=== PATIENT | male | born 1980 | race Caucasian/White ===

== ENCOUNTER → 2017-07-05 | Outpatient (CLI) | payer OTHER | LOC: M PLARAD 10:33 | DX: M51.06 Intervertebral disc disorders with myelopathy, lumbar region (principal); M46.96 Unspecified inflammatory spondylopathy, lumbar region | CPT/HCPCS: 72148 ==

== ENCOUNTER 2019-07-22 01:02 | Emergency (ER) | payer OTHER ==
[~2019-07-22] VITALS: Ht 170.2 cm; Wt 89.0 kg
[2019-07-22] MEDS ORDERED: NS 1,000 ML IV ONE (01:15)
[2019-07-22 01:42] LABS: BASO % 0.3 % (0.0-1.0); EOS # 0.1 10^3/uL (0.0-0.5); EOS % 0.5 % (0.0-3.0); HEMATOCRIT 41.9 % (42.0-52.0); LYMPH # 1.2 10^3/uL (1.5-5.0); LYMPH % 9.5 % (24.0-44.0); MEAN CORPUSCULAR HEMOGLOBIN 29.1 pg (27.0-33.0); MEAN CORPUSCULAR HGB CONC 33.4 g/dl (32.0-36.5); MEAN CORPUSCULAR VOLUME 87.1 fl (80.0-96.0); MONO # 0.5 10^3/uL (0.0-0.8); MONO % 4.2 % (0.0-5.0); NEUTROPHILS # 10.4 10^3/uL (1.5-8.5); NEUTROPHILS % 85.3 % (36.0-66.0); PLATELET COUNT, AUTOMATED 218 10^3/uL (150-450); RED BLOOD COUNT 4.81 10^6/uL (4.30-6.10); WHITE BLOOD COUNT 12.2 10^3/uL (4.0-10.0)
[2019-07-22 02:15] LABS: ACETAMINOPHEN LEVEL < 2.0 UG/ML (10.0-30.0); ALT/SGPT 50 U/L (12-78); BILIRUBIN,DIRECT 0.1 MG/DL (0.0-0.2); BILIRUBIN,TOTAL 0.3 MG/DL (0.2-1.0); BLOOD UREA NITROGEN 5 MG/DL (7-18); CARBON DIOXIDE LEVEL 25 MEQ/L (21-32); CHLORIDE LEVEL 115 MEQ/L (98-107); CPK CREATINE PHOSPHOKINASE 162 U/L (39-308); CREATININE FOR GFR 0.99 MG/DL (0.70-1.30); ETHYL ALCOHOL (ETHANOL) < 0.003 % (0.000-0.010); GLOMERULAR FILTRATION RATE > 60.0 (>60); GLUCOSE, FASTING 109 MG/DL (70-100); SALICYLATE LEVEL < 1.7 MG/DL (5.0-30.0); SODIUM LEVEL 145 MEQ/L (136-145); THYROID STIMULATING HORMONE 0.498 uIU/ML (0.358-3.740); TOTAL PROTEIN 7.3 GM/DL (6.4-8.2)
[2019-07-22 03:19] LABS: AMPHETAMINES LEVEL URINE NEGATIVE (NEGATIVE); BARBITURATES URINE NEGATIVE (NEGATIVE); BENZODIAZEPINES URINE NEGATIVE (NEGATIVE); CANNABINOIDS URINE NEGATIVE (NEGATIVE); COCAINE METABOLITE URINE NEGATIVE (NEGATIVE); METHADONE URINE NEGATIVE (NEGATIVE); OPIATES URINE NEGATIVE (NEGATIVE); PHENCYCLIDINE URINE NEGATIVE (NEGATIVE)
--- NOTE | 2019-07-22 05:13 | REPVR ---
PROCEDURE INFORMATION: Exam: CT Head Without Contrast Exam date and time: 07/22/2019 4:52 AM Age: 38 years old Clinical indication: Altered mental status/memory loss; Confusion or disorientation; Additional info: AMS TECHNIQUE: Imaging protocol: Computed tomography of the head without contrast. Radiation optimization: All CT scans at this facility use at least one of these dose optimization techniques: automated exposure control; mA and/or kV adjustment per patient size (includes targeted exams where dose is matched to clinical indication); or iterative reconstruction. COMPARISON: No relevant prior studies available. FINDINGS: Brain: Normal. No hemorrhage. Unremarkable white matter. No mass effect. Ventricles: Normal. No ventriculomegaly. Bones/joints: Unremarkable. No acute fracture. Sinuses: Visualized sinuses are unremarkable. No fluid levels. Mastoid air cells: Visualized mastoid air cells are well aerated. Soft tissues: Unremarkable. IMPRESSION: No acute intracranial abnormality. Electronically signed by: Kam Finch On 07/22/2019 05:13:07 AM
[2019-07-22 06:28] LABS: LITHIUM LEVEL 1.26 MEQ/L (0.60-1.20)
[2019-07-22] MEDS ORDERED: PRAZ2CAP PO (07:58)
[2019-07-22] MEDS ORDERED: OXYC10TA12 PO (07:58)
[2019-07-22] MEDS ORDERED: GABA-843 PO (07:58)
[2019-07-22] MEDS ORDERED: LITH300C PO (07:58)
[2019-07-22] MEDS ORDERED: NARC1SPR NARES (07:58)
[2019-07-22] MEDS ORDERED: LIDO1CRE2 TOP (07:58)
[2019-07-22] MEDS ORDERED: THER4000 PO (07:58)
[2019-07-22] MEDS ORDERED: ZOLP5TAB PO (07:58)
[2019-07-22] MEDS ORDERED: DURA25DI3 TOP (07:58)
[2019-07-22] MEDS ORDERED: CLOB0.0526 TOP (07:58)
[2019-07-22] MEDS ORDERED: PROP60TA14 PO (07:58)
[2019-07-22] MEDS ORDERED: PRAZOSIN 1 MG CAP PO ONE (09:15)
[2019-07-22] MEDS ORDERED: PROPRANOLOL 10 MG TAB PO ONE (09:15)
[2019-07-22 09:19] VITALS: BP 151/90
[2019-07-22] MEDS ORDERED: ALPRAZolam 0.5 MG TAB PO ONE (09:45)
[2019-07-22] MEDS ORDERED: REME15TA2 PO (10:52)
--- NOTE | 2019-07-22 10:52 | MHCRPDOC ---
[facility] Consultation Consultation DATE OF CONSULTATION: 07/22/19 CONSULTATION REQUESTED BY: ED REASON FOR CONSULTATION: altered thoughts RELEVANT HISTORY: Pt was brought to ED by his due to having altered though ts, responding to internal stimuli after having taken ambien the previous not to help him sleep and accidently forgetting to take his old fentanyl patch off prior to putting a new one on. Pt seen this morning and states he feels much better after taking off one of his fentanyl patches off, that his thoughts are clear, and he denies SI/HI, hallucinations, delusions. States he has not slept in 4 nights as ambien hasn't been beneficial to help him sleep. Discussed giving him an rx for remeron 15mg qhs for insomnia, risks/benefits discussed, and he's agreeable. Feels safe to go home to his today with follow-up at the [facility]. 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 FAMILY HISTORY: denies PERSONAL AND SOCIAL HISTORY: Resides in: [place] with his who is supportive Marital Status: M Children: denies Employment: [employer] with benefits due to injury during deployment SUBSTANCE ABUSE HISTORY: denies LEGAL HISTORY: denies MENTAL STATUS EXAMINATION: Patient is a 38-year old male, who is cooperative and appropriate Speech is reg rate/rhythm/volume Language skills are appropriate Thought processes including: linear/logical, future oriented Thought content: denies SI/HI, AVH Abstract reasoning, and computation: intact Description of associations: appropriate Description of abnormal or psychotic thoughts: denies hallucinations, delusions, paranoia Judgment: good Insight: good Orientation to x3 Recent and remote memory: intact Attention span and concentration: good Language: appropriate Fund of knowledge: average Mood: "better" Affect: euthymic, full range DIAGNOSIS: 1. Psychosis unspecified PLAN: 1. d/c ambien, Rx remeron 15mg qhs for insomnia 2.D/c hoem with follow-up at the [facility] Vital Signs Vital Signs Date Time Temp Pulse Resp B/P (MAP) Pulse Ox O2 Delivery O2 Flow Rate FiO2 07/22/19 09:58 91 151/90 (110) 07/22/19 05:32 95 07/22/19 05:31 98.3 18 Room Air Laboratory Data 24H Labs Laboratory Tests 2 07/22/19 01:33: Immature Granulocyte % (Auto) 0.2, Neutrophils (%) (Auto) 85.3H, Lymphocytes (%) (Auto) 9.5L, Monocytes (%) (Auto) 4.2, Eosinophils (%) (Auto) 0.5, Basophils (%) (Auto) 0.3, Neutrophils # (Auto) 10.4H, Lymphocytes # (Auto) 1.2L, Monocytes # (Auto) 0.5, Eosinophils # (Auto) 0.1, Basophils # (Auto) 0.0, Nucleated Red Blood Cells % (auto) 0.0, Anion Gap 5L, Glomerular Filtration Rate > 60.0, Calcium Level 10.0, Total Bilirubin 0.3, Direct Bilirubin 0.1, Aspartate Amino Transf (AST/SGOT) 21, Alanine Aminotransferase (ALT/SGPT) 50, Alkaline Phosphatase 88, Total Creatine Kinase 162, Total Protein 7.3, Albumin 4.0, Albumin/Globulin Ratio 1.21, Thyroid Stimulating Hormone (TSH) 0.498, Salicylates Level < 1.7L, Urine Opiates Screen NEGATIVE, Urine Methadone Screen NEGATIVE, Acetaminophen Level < 2.0L, Urine Barbiturates Screen NEGATIVE, Urine Phencyclidine Screen NEGATIVE, Urine Amphetamines Screen NEGATIVE, Urine Benzodiazepines Screen NEGATIVE, Lane Level 1.26H, Urine Cocaine Metabolite Screen NEGATIVE, Urine Cannabinoids Screen NEGATIVE, Ethyl Alcohol Level < 0.003 07/22/19 06:49: Lane Level 0.84 Home Medications Scheduled Cholecalciferol (Vitamin D3) (Thera-D) 4,000 Unit Tablet, 4,000 UNIT PO DAILY, (Reported) Clobetasol Propionate (Clobetasol Propionate) 0.05% 50GM Foam, 1 APLCT TOP BID, (Reported) Fentanyl (Duragesic) 25 Mcg Patch.td72, 1 PATCH TOP Q3D for pain, (Reported) Gabapentin (Gabapentin) 300 Mg Capsule, 1 CAP PO QPM, (Reported) Lidocaine (Lidocaine) 5 Gm Cream..g., 1 APLCT TOP DAILY, (Reported) Lane Carbonate (Lane Carbonate) 300 Mg Capsule, 900 MG PO QPM, (Reported) Naloxone HCl (Narcan) 4 Mg [place], 1 SPRAY NARES ONCE, (Reported) Prazosin Hcl (Prazosin HCl) 2 Mg Capsule, 2 CAP PO BID, (Reported) Propranolol Hcl (Propranolol HCl) 60 Mg Tablet, 10 MG PO TID, (Reported) Scheduled PRN Oxycodone HCl (Oxycodone HCl) 10 Mg Tablet, 1 TAB PO QIDP PRN for pain, (Reported) Zolpidem Tartrate (Zolpidem Tartrate) 5 Mg Tablet, 12.5 MG PO QPMP PRN for sleep, (Reported) Allergies Uncoded Allergies: unknown antibiotic (Allergy, Severe, 07/22/19) PHU CORLEY DO Jul 22, 2019 10:52
[2019-07-22 11:08] VITALS: BP 144/87
--- NOTE | 2019-07-22 22:26 | ECGEPIP ---
[facility] - ED Test Date: 2019-07-22 Pat Name: JAY PITT Department: Room: - Gender: Male Event Specialist: : 1980 Requested By: JOHANA Brumfield Order Number: [id number] Reading MD: Roddy Garcia Measurements Intervals [place] Rate: 103 P: 44 VA: 200 QRS: 14 QRSD: 81 T: 11 QT: 348 QTc: 456 Interpretive Statements SINUS TACHYCARDIA WITH FREQUENT SUPRAVENTRICULAR PREMATURE COMPLEXES NONSPECIFIC T-WAVE ABNORMALITY NO PRIORS FOR COMPARISON Electronically Signed on 07-22-2019 22:26:34 EDT by Roddy Garcia
== END 2019-07-22 11:10 | disposition home or self-care (01) ==
LOC: M ED 01:02
DX: F19.150 Other psychoactive substance abuse with psychoactive substance-induced psychotic disorder with delusions (principal); R00.0 Tachycardia, unspecified; Z79.899 Other long term (current) drug therapy; Z88.1 Allergy status to other antibiotic agents
CPT/HCPCS: 70450; 80048; 80076; 80178; 80307; 82550; 84443; 85025; 93005; 93041; 94760; 96360; 99285; G0480

== ENCOUNTER 2021-05-23 14:01 | Emergency (ER) | payer OTHER ==
[~2021-05-23] VITALS: Ht 170.2 cm; Wt 88.8 kg
[~2021-05-23 14:01] MED LIST: CLOB0.0526 TOP; DURA25DI3 TOP; GABA-282 PO; LIDO1CRE2 TOP; LITH300C PO; NARC1SPR NARES; OXYC10TA12 PO; PRAZ2CAP PO; PROP60TA14 PO; REME15TA2 PO; THER4000 PO; ZOLP5TAB PO
[2021-05-23] MEDS ORDERED: PANTOPRAZOLE 40MG VIAL (C9113 PER 1) IV ONE (17:15)
[2021-05-23] MEDS ORDERED: GI COCKTAIL 50ML BTL(HYOSCYAMINE/MAALOX/LIDOCAINE VISCOUS)(1:3:1) PO ONE (17:15)
[2021-05-23] MEDS ORDERED: SUCRALFATE 1 GM TAB PO ONE (17:15)
[2021-05-23 17:21] LABS: BASO % 0.2 % (0.0-1.0); EOS % 0.1 % (0.0-3.0); HEMOGLOBIN 14.2 g/dl (13.5-17.5); LYMPH # 1.2 10^3/uL (1.5-5.0); LYMPH % 6.7 % (24.0-44.0); MEAN CORPUSCULAR HEMOGLOBIN 29.1 pg (27.0-33.0); MEAN CORPUSCULAR HGB CONC 33.8 g/dl (32.0-36.5); MEAN CORPUSCULAR VOLUME 86.1 fl (80.0-96.0); MONO # 0.5 10^3/uL (0.0-0.8); MONO % 2.7 % (2.0-8.0); NEUTROPHILS # 15.3 10^3/uL (1.5-8.5); NEUTROPHILS % 89.5 % (36.0-66.0); PLATELET COUNT, AUTOMATED 229 10^3/uL (150-450); RED BLOOD COUNT 4.88 10^6/uL (4.30-6.10); WHITE BLOOD COUNT 17.1 10^3/uL (4.0-10.0)
[2021-05-23 17:26] LABS: ALBUMIN 4.3 GM/DL (3.2-5.2); ALT/SGPT 28 U/L (12-78); BILIRUBIN,DIRECT 0.1 MG/DL (0.0-0.2); BILIRUBIN,TOTAL 0.3 MG/DL (0.2-1.0); BLOOD UREA NITROGEN 10 MG/DL (7-18); CALCIUM LEVEL 9.8 MG/DL (8.5-10.1); CARBON DIOXIDE LEVEL 24 MEQ/L (21-32); CHLORIDE LEVEL 110 MEQ/L (98-107); CREATININE FOR GFR 1.23 MG/DL (0.70-1.30); GLOMERULAR FILTRATION RATE > 60.0 (>60); GLUCOSE, FASTING 140 MG/DL (70-100); LIPASE 74 U/L (73-393); POTASSIUM SERUM 3.8 MEQ/L (3.5-5.1); SODIUM LEVEL 140 MEQ/L (136-145); TOTAL PROTEIN 7.6 GM/DL (6.4-8.2)
[2021-05-23] MEDS ORDERED: PROT1TAB2 PO (18:48)
[2021-05-23] MEDS ORDERED: CARA1TAB6 PO (18:48)
[2021-05-23 18:57] VITALS: BP 155/80
== END 2021-05-23 19:05 | disposition home or self-care (01) ==
LOC: M ED 14:01
DX: R10.11 Right upper quadrant pain (principal); D72.829 Elevated white blood cell count, unspecified; K80.20 Calculus of gallbladder without cholecystitis without obstruction; I47.1 Supraventricular tachycardia; Z88.5 Allergy status to narcotic agent; Z88.8 Allergy status to other drugs, medicaments and biological substances; Z79.899 Other long term (current) drug therapy

== ENCOUNTER 2021-05-25 21:29 | Inpatient (IN) | payer OTHER ==
[~2021-05-25] VITALS: Ht 170.2 cm; Wt 89.5 kg
[~2021-05-25 21:29] MED LIST changes: +CARA1TAB6 PO; +PROT1TAB2 PO
[2021-05-25] MEDS ORDERED: MORPHINE 2 MG/ML 1ML VIAL (J2270) IV PRN (23:00)
[2021-05-25] MEDS ORDERED: ACETAMINOPHEN TAB 650MG DOSE (2X325MG) PO PRN (23:00)
[2021-05-25] MEDS ORDERED: ONDANSETRON 4MG/2ML VIAL IV PRN (23:00)
[2021-05-25 23:39] VITALS: BP 140/78
[2021-05-26] VITALS (8 sets, daily range): BP systolic 113–145; BP diastolic 61–82
[2021-05-26] MEDS: KCL 20MEQ IN D5/0.45NS 1000ML 1,000 ML IV SCH ×4 (00:29→23:03)
[2021-05-26] MEDS: PIPERACILLIN/TAZOBACTAM SOD 3.375 GM in D5W MINI-BAG PLUS 50 ML IV SCH ×4 (01:23→19:46)
[2021-05-26] MEDS ORDERED: PROP10TA56 PO (01:35)
[2021-05-26] MEDS ORDERED: FAMO20TA PO (01:35)
[2021-05-26] MEDS ORDERED: GABA600T4 PO (01:35)
[2021-05-26] MEDS ORDERED: MIRT-60 PO (01:35)
[2021-05-26] MEDS ORDERED: LITH45TASA PO (01:35)
[2021-05-26] MEDS ORDERED: PRAZ2CAP PO (01:35)
[2021-05-26] MEDS ORDERED: VITA500054 PO (01:35)
[2021-05-26] MEDS ORDERED: OCUV1CAP4 PO (01:36)
[2021-05-26] MEDS ORDERED: REFR0.5D8 OU (01:36)
[2021-05-26] MEDS ORDERED: FISH1000 PO (01:36)
[2021-05-26] MEDS ORDERED: HOME MED LIST COMPLETE! XX SCH (01:40)
[2021-05-26] MEDS: GABAPENTIN 300 MG CAP PO SCH ×2 (02:05→19:49)
[2021-05-26] MEDS: MIRTAZAPINE 15 MG TAB PO SCH ×2 (02:05→19:48)
[2021-05-26] MEDS: PRAZOSIN 1 MG CAP PO SCH ×3 (02:06→20:05)
[2021-05-26] MEDS: PROPRANOLOL 10 MG TAB PO SCH ×3 (02:29→20:05)
[2021-05-26] MEDS: LITHIUM CARBONATE 450 MG **CR** TAB PO SCH ×2 (02:29→19:48)
[2021-05-26] MEDS: FAMOTIDINE 20 MG TAB PO SCH ×2 (08:23→19:49)
[2021-05-26] MEDS: KETOROLAC 30 MG/ML 1ML VIAL IV PRN (08:23)
[2021-05-26 11:15] LABS: BASO # 0.1 10^3/uL (0.0-0.2); BASO % 0.3 % (0.0-1.0); EOS # 0.2 10^3/uL (0.0-0.5); EOS % 0.9 % (0.0-3.0); HEMATOCRIT 39.9 % (42.0-52.0); HEMOGLOBIN 13.4 g/dl (13.5-17.5); LYMPH # 1.9 10^3/uL (1.5-5.0); LYMPH % 9.9 % (24.0-44.0); MEAN CORPUSCULAR HEMOGLOBIN 29.3 pg (27.0-33.0); MEAN CORPUSCULAR HGB CONC 33.6 g/dl (32.0-36.5); MEAN CORPUSCULAR VOLUME 87.1 fl (80.0-96.0); MONO # 1.3 10^3/uL (0.0-0.8); NEUTROPHILS # 15.1 10^3/uL (1.5-8.5); NEUTROPHILS % 81.2 % (36.0-66.0); PLATELET COUNT, AUTOMATED 212 10^3/uL (150-450); RED BLOOD COUNT 4.58 10^6/uL (4.30-6.10); WHITE BLOOD COUNT 18.6 10^3/uL (4.0-10.0)
[2021-05-26 13:06] LABS: ALBUMIN 2.9 GM/DL (3.2-5.2); ALT/SGPT 59 U/L (12-78); BILIRUBIN,TOTAL 0.8 MG/DL (0.2-1.0); BLOOD UREA NITROGEN 11 MG/DL (7-18); CARBON DIOXIDE LEVEL 22 MEQ/L (21-32); CHLORIDE LEVEL 111 MEQ/L (98-107); CREATININE FOR GFR 1.24 MG/DL (0.70-1.30); GLOMERULAR FILTRATION RATE > 60.0 (>60); GLUCOSE, FASTING 133 MG/DL (70-100); POTASSIUM SERUM 3.9 MEQ/L (3.5-5.1); SODIUM LEVEL 138 MEQ/L (136-145); TOTAL PROTEIN 6.8 GM/DL (6.4-8.2)
[2021-05-26] MEDS ORDERED: BUPIVACAINE HCL 0.25% 30ML VIAL As Ordered ONE (15:35)
[2021-05-26] MEDS ORDERED: propofoL 200 MG/20 ML VIAL As Ordered ONE (15:36)
[2021-05-26] MEDS ORDERED: ROCURONIUM BROMIDE 50 MG/5 ML VIAL As Ordered ONE ×2 (15:36→16:27)
[2021-05-26] MEDS ORDERED: ONDANSETRON 4MG/2ML VIAL As Ordered ONE (15:36)
[2021-05-26] MEDS ORDERED: LIDOCAINE 2% 100MG/5ML SDV (FOR ANES.) As Ordered ONE (15:36)
[2021-05-26] MEDS ORDERED: fentaNYL 100 MCG/2 ML INJECTION (J3010) As Ordered ONE ×2 (15:36→17:10)
[2021-05-26] MEDS ORDERED: dexameTHASONE 4 MG/ML 1ML VIAL (J1100 PER 1MG) As Ordered ONE (15:36)
[2021-05-26] MEDS ORDERED: MIDAZOLAM INJ 2MG/2ML VIAL (J2250 PER 1MG) As Ordered ONE (15:36)
[2021-05-26] MEDS ORDERED: ESMOLOL INJ 100MG/10ML VIAL As Ordered ONE (16:05)
[2021-05-26] MEDS ORDERED: SUGAMMADEX SODIUM 500 MG/5 ML VIAL (BRIDION) As Ordered ONE (16:24)
[2021-05-26] MEDS ORDERED: KETOROLAC 60MG 2ML VIAL As Ordered ONE (16:24)
[2021-05-26] MEDS ORDERED: PHENYLephrine 500MCG 5ML (100MCG/ML) SYRINGE As Ordered ONE (16:50)
[2021-05-26] MEDS ORDERED: ePHEDrine SULFATE 25 MG/5 ML(5MG/ML) SYRINGE As Ordered ONE (16:50)
[2021-05-26] MEDS ORDERED: GLYCOPYRROLATE INJ 0.2 MG/ML 2 ML VIAL As Ordered ONE (16:51)
[2021-05-26] MEDS ORDERED: fentaNYL 100 MCG/2 ML INJECTION (J3010) IV PRN (18:30)
[2021-05-26] MEDS ORDERED: oxyCODONE 5MG TAB PO PRN (18:30)
[2021-05-26] MEDS ORDERED: LR 1,000 ML IV SCH (18:30)
[2021-05-26] MEDS ORDERED: ONDANSETRON 4MG/2ML VIAL IV PRN (18:30)
[2021-05-27] VITALS: BP 136/76
[2021-05-27] MEDS: PIPERACILLIN/TAZOBACTAM SOD 3.375 GM in D5W MINI-BAG PLUS 50 ML IV SCH ×4 (02:36→20:13)
[2021-05-27 06:00] VITALS: BP 132/72
[2021-05-27 06:45] LABS: BASO % 0.1 % (0.0-1.0); HEMATOCRIT 40.9 % (42.0-52.0); HEMOGLOBIN 13.3 g/dl (13.5-17.5); LYMPH # 0.9 10^3/uL (1.5-5.0); LYMPH % 6.1 % (24.0-44.0); MEAN CORPUSCULAR HGB CONC 32.5 g/dl (32.0-36.5); MEAN CORPUSCULAR VOLUME 89.1 fl (80.0-96.0); MONO # 0.8 10^3/uL (0.0-0.8); MONO % 5.7 % (2.0-8.0); NEUTROPHILS # 12.5 10^3/uL (1.5-8.5); NEUTROPHILS % 87.3 % (36.0-66.0); PLATELET COUNT, AUTOMATED 208 10^3/uL (150-450); RED BLOOD COUNT 4.59 10^6/uL (4.30-6.10); WHITE BLOOD COUNT 14.3 10^3/uL (4.0-10.0)
[2021-05-27] MEDS: KETOROLAC 30 MG/ML 1ML VIAL IV PRN (06:49)
[2021-05-27 06:58] LABS: ALT/SGPT 160 U/L (12-78); BILIRUBIN,TOTAL 0.6 MG/DL (0.2-1.0); BLOOD UREA NITROGEN 9 MG/DL (7-18); CALCIUM LEVEL 9.5 MG/DL (8.5-10.1); CARBON DIOXIDE LEVEL 23 MEQ/L (21-32); CHLORIDE LEVEL 115 MEQ/L (98-107); CREATININE FOR GFR 1.19 MG/DL (0.70-1.30); GLOMERULAR FILTRATION RATE > 60.0 (>60); GLUCOSE, FASTING 175 MG/DL (70-100); POTASSIUM SERUM 4.1 MEQ/L (3.5-5.1); SODIUM LEVEL 142 MEQ/L (136-145); TOTAL PROTEIN 7.2 GM/DL (6.4-8.2)
[2021-05-27] MEDS: FAMOTIDINE 20 MG TAB PO SCH ×2 (08:11→20:13)
[2021-05-27] MEDS: PRAZOSIN 1 MG CAP PO SCH ×2 (08:11→20:14)
[2021-05-27] MEDS: PROPRANOLOL 10 MG TAB PO SCH ×2 (08:12→20:14)
[2021-05-27] MEDS: KCL 20MEQ IN D5/0.45NS 1000ML 1,000 ML IV SCH ×3 (11:21→22:12)
[2021-05-27 14:00] VITALS: BP 149/74
[2021-05-27 20:00] VITALS: BP 160/85
[2021-05-27] MEDS: LITHIUM CARBONATE 450 MG **CR** TAB PO SCH (20:13)
[2021-05-27] MEDS: MIRTAZAPINE 15 MG TAB PO SCH (20:14)
[2021-05-27] MEDS: GABAPENTIN 300 MG CAP PO SCH (20:14)
[2021-05-28] VITALS: BP 132/66
[2021-05-28] MEDS: PIPERACILLIN/TAZOBACTAM SOD 3.375 GM in D5W MINI-BAG PLUS 50 ML IV SCH ×4 (02:07→20:09)
[2021-05-28 06:00] VITALS: BP 150/82
[2021-05-28] MEDS: KCL 20MEQ IN D5/0.45NS 1000ML 1,000 ML IV SCH ×2 (06:17→18:27)
[2021-05-28] MEDS: PRAZOSIN 1 MG CAP PO SCH ×2 (08:30→20:10)
[2021-05-28] MEDS: PROPRANOLOL 10 MG TAB PO SCH ×2 (08:30→20:11)
[2021-05-28] MEDS: FAMOTIDINE 20 MG TAB PO SCH ×2 (08:30→20:10)
[2021-05-28 14:00] VITALS: BP 131/76
[2021-05-28] MEDS: LITHIUM CARBONATE 450 MG **CR** TAB PO SCH (20:10)
[2021-05-28] MEDS: MIRTAZAPINE 15 MG TAB PO SCH (20:10)
[2021-05-28] MEDS: GABAPENTIN 300 MG CAP PO SCH (20:10)
[2021-05-28] MEDS ORDERED: OXYMETAZOLINE 0.05% NASAL SPRAY (AFRIN) SCH (21:00)
[2021-05-28 21:51] VITALS: BP 135/77
[2021-05-29 01:46] VITALS: BP 121/59
[2021-05-29] MEDS: PIPERACILLIN/TAZOBACTAM SOD 3.375 GM in D5W MINI-BAG PLUS 50 ML IV SCH ×2 (02:13→08:21)
[2021-05-29] MEDS: KCL 20MEQ IN D5/0.45NS 1000ML 1,000 ML IV SCH (02:13)
[2021-05-29 06:00] VITALS: BP 120/60
[2021-05-29] MEDS: PRAZOSIN 1 MG CAP PO SCH (08:21)
[2021-05-29 08:22] VITALS: BP 120/60
[2021-05-29] MEDS: FAMOTIDINE 20 MG TAB PO SCH (08:22)
[2021-05-29] MEDS: PROPRANOLOL 10 MG TAB PO SCH (08:22)
[2021-05-29 09:28] LABS: HEMATOCRIT 36.7 % (42.0-52.0); MEAN CORPUSCULAR HEMOGLOBIN 29.3 pg (27.0-33.0); MEAN CORPUSCULAR HGB CONC 32.7 g/dl (32.0-36.5); MEAN CORPUSCULAR VOLUME 89.5 fl (80.0-96.0); PLATELET COUNT, AUTOMATED 202 10^3/uL (150-450); WHITE BLOOD COUNT 8.8 10^3/uL (4.0-10.0)
[2021-05-29 10:00] VITALS: BP 124/67
[2021-05-29 10:01] LABS: ALBUMIN 2.8 GM/DL (3.2-5.2); ALT/SGPT 157 U/L (12-78); BILIRUBIN,TOTAL 0.4 MG/DL (0.2-1.0); BLOOD UREA NITROGEN 8 MG/DL (7-18); CALCIUM LEVEL 9.2 MG/DL (8.5-10.1); CARBON DIOXIDE LEVEL 23 MEQ/L (21-32); CHLORIDE LEVEL 110 MEQ/L (98-107); CREATININE FOR GFR 1.16 MG/DL (0.70-1.30); GLOMERULAR FILTRATION RATE > 60.0 (>60); GLUCOSE, FASTING 194 MG/DL (70-100); POTASSIUM SERUM 3.8 MEQ/L (3.5-5.1); SODIUM LEVEL 141 MEQ/L (136-145); TOTAL PROTEIN 6.6 GM/DL (6.4-8.2)
== END 2021-05-29 13:10 | disposition home or self-care (01) | DRG 419 ==
LOC: M MS5PR 21:29
PROVIDERS: ADMIT Surgery; ATTEND Surgery
PROC: 0FT44ZZ Resection of Gallbladder, Percutaneous Endoscopic Approach (ICD-10-PCS; principal; 2021-05-26 14:15)
DX: K80.62 Calculus of gallbladder and bile duct with acute cholecystitis without obstruction (principal); F43.10 Post-traumatic stress disorder, unspecified; F17.290 Nicotine dependence, other tobacco product, uncomplicated; M54.9 Dorsalgia, unspecified; Z79.899 Other long term (current) drug therapy; Z88.5 Allergy status to narcotic agent; Z88.1 Allergy status to other antibiotic agents